=== PATIENT | female | born 1950 ===

== ENCOUNTER 2019-06-03 08:35 | Outpatient (CLI) | payer OTHER ==
[~2019-06-03] VITALS: Ht 149.9 cm; Wt 75.7 kg
[2019-06-03] MEDS ORDERED: CLARITIN10 MG PO (09:28)
[2019-06-03] MEDS ORDERED: DERMOTIC20 ML OTIC (09:28)
== END 2019-06-03 13:39 | disposition home or self-care (01) ==
LOC: OFIC 805 08:35
DX: L29.8 Other pruritus (principal); H60.593 Other noninfective acute otitis externa, bilateral; H61.23 Impacted cerumen, bilateral; J31.0 Chronic rhinitis; H90.3 Sensorineural hearing loss, bilateral

== ENCOUNTER 2019-08-23 08:18 | Emergency (ER) | payer OTHER ==
[~2019-08-23] VITALS: Ht 149.9 cm; Wt 75.7 kg
[~2019-08-23 08:18] MED LIST: CLARITIN10 MG PO; DERMOTIC20 ML OTIC
[2019-08-23] MEDS ORDERED: LANTUS SOL100 UNIT/1 (09:05)
[2019-08-23] MEDS ORDERED: SYNTHROID200 MCG PO (09:05)
[2019-08-23] MEDS ORDERED: LOSARTAN POTASS25 MG PO (09:05)
[2019-08-23] MEDS ORDERED: JANUMET 50-5001 EACH PO (09:06)
== END 2019-08-23 14:10 | disposition home or self-care (01) ==
LOC: ER 08:18
DX: J45.998 Other asthma (principal)

== ENCOUNTER 2019-08-27 07:34 | Outpatient (CLI) | payer OTHER ==
[~2019-08-27] VITALS: Ht 121.9 cm; Wt 74.8 kg
[~2019-08-27 07:34] MED LIST changes: +JANUMET 50-5001 EACH PO; +LANTUS SOL100 UNIT/1; +LOSARTAN POTASS25 MG PO; +SYNTHROID200 MCG PO
[2019-08-27] MEDS ORDERED: CLARITIN10 MG PO (09:39)
[2019-08-27] MEDS ORDERED: DERMOTIC20 ML OTIC (09:40)
== END 2019-08-27 13:16 | disposition home or self-care (01) ==
LOC: OFIC 805 07:34
DX: L29.8 Other pruritus (principal); H60.543 Acute eczematoid otitis externa, bilateral; J31.0 Chronic rhinitis; H90.3 Sensorineural hearing loss, bilateral